=== PATIENT | male | born 1960 | race Caucasian/White ===

== ENCOUNTER 2017-04-07 11:47 | Emergency (ER) | payer MEDICAID ==
[~2017-04-07] VITALS: Ht 167.6 cm; Wt 72.6 kg
[~2017-04-07 11:47] MED LIST: LIPITOR20 MG ORAL; MIRALAX17 G2 ORAL; PROCTOCREAM-HC30 GM RC
[2017-04-07 11:58] VITALS: BP 126/70
--- NOTE | 2017-04-07 12:19 | Emergency Room Report ---
History of Present Illness General Chief Complaint: Back Pain-No Injury Present Illness HPI 56 YO male presents to the ED c/o Itching, swelling, and erythema of several lesions on the back x 1 month with intermittent burning pain rated as 8/10 in severity. Denies trauma or fall. Denies ill contacts or recent travel denies fevers, chills, joint pain. Patient denies past medical history other than hyperlipidemia and states he is otherwise healthy. Denies lesions/rashes elsewhere on the body. Denies new medications or body washes or creams. Denies swelling of the lips, tongue , throat or airway. Denies wheezing, or shortness of breath. Denies recent travel, recent illness or ill contacts. denies blisters, oral lesions, or sloughing of the skin. denies CP, palpitations, abdominal pain, neck pain/stiffness, or AMBROSE. Allergies: Coded Allergies: No Known Allergies (Unverified , 04/18/14) Patient History Past Medical History: see triage record Past Surgical History: none Pertinent Family History: none Reviewed Nursing Documentation: PMH: Agreed, PSxH: Agreed Nursing Documentation-PMH Hx Hypertension: Yes Hx Diabetes: Yes Review of Systems All Other Systems: negative except mentioned in HPI Physical Exam Vital Signs Date Time Temp Pulse Resp B/P (MAP) Pulse Ox O2 Delivery O2 Flow Rate FiO2 04/07/17 11:53 98.2 88 20 126/70 98 Room Air Sp02 EP Interpretation: reviewed, normal General Appearance: no apparent distress, alert, GCS 15, non-toxic Head: normocephalic, atraumatic Eyes: bilateral eye normal inspection, bilateral eye PERRL ENT: hearing grossly normal, normal pharynx, no angioedema, normal voice, other - no oral lesions Neck: full range of motion, no bony tend Respiratory: chest non-tender, lungs clear, normal breath sounds, no wheezing, speaking full sentences Cardiovascular #1: regular rate, rhythm Gastrointestinal: other - no lesions noted on anterior torso Rectal: deferred Musculoskeletal: back normal, gait/station normal, normal range of motion, non- tender Neurologic: alert, oriented x3, responsive, motor strength/tone normal, sensory intact, speech normal Skin: normal color, warm/dry, well hydrated, rash - scattered discrete erythematous papular lesions with localized swelling, no increased temperature to palpation, no appreciable pattern no blisters, no vesicles, no pustules, some excoriations noted, no increased temperature to palpation only on the upper back. Lymphatic: no adenopathy Medical Decision Making PA Attestation Dr. Bsasett is my supervising Physician whom patient management has been discussed with. Diagnostic Impression: Primary Impression: Rash and nonspecific skin eruption ER Course 56 YO male presents to the ED c/o Itching, swelling, and erythema of several lesions on the back x 1 month with intermittent burning pain rated as 8/10 in severity. Denies trauma or fall. Denies ill contacts or recent travel denies fevers, chills, joint pain. Patient denies past medical history other than hyperlipidemia and states he is otherwise healthy. Denies lesions/rashes elsewhere on the body. Denies new medications or body washes or creams. Denies swelling of the lips, tongue , throat or airway. Denies wheezing, or shortness of breath. Denies recent travel, recent illness or ill contacts. denies blisters, oral lesions, or sloughing of the skin. denies CP, palpitations, abdominal pain, neck pain/stiffness, or AMBROSE. Ddx considered but are not limited to cellulitis, scabies, insect bites, tic bites, spider bites, contact dermatitis, Drug reaction, allergic reaction, fungal infection, lice. Vital signs: are WNL, pt. is afebrile H&PE are most consistent with insect bites, no evidence of secondary infection ORDERS: none required at this time, the diagnosis is clinical ED INTERVENTIONS: None required at this time. DISCHARGE: At this time pt. is stable for d/c to home. Will provide printed patient care instructions, and any necessary prescriptions. Care plan and follow up instructions have been discussed with the patient prior to discharge. Last Vital Signs Date Time Temp Pulse Resp B/P (MAP) Pulse Ox O2 Delivery O2 Flow Rate FiO2 04/07/17 11:58 20 126/70 98 Room Air 04/07/17 11:53 98.2 88 Disposition: HOME, SELF-CARE Condition: Stable Scripts Hydrocortisone (Hydrocortisone Cream 2.5%) Y Cream.appl 1 APPLIC TP BID, #28.3 GM Prov: Abril Brannon 04/07/17 Diphenhydramine Hcl (BENADRYL ALLERGY) 25 Mg Tablet 25 MG PO Q6HR, #20 TAB Prov: Abril Brannon 04/07/17 Patient Instructions: Rash, Uizm-ci-Blvy Additional Instructions: Take medications as directed. Follow up with a Primary Care Provider in 3-5 days, even if your symptoms have resolved. --Please review list of primary care clinics, if you do not already have a primary care provider Return sooner to ED if new symptoms occur, or current symptoms become worse. Do not drink alcohol, drive, or operate heavy machinery while taking benadryl as this may cause drowsiness. - Please note that this Emergency Department Report was dictated using [employer] family teacher technology software, occasionally this can lead to erroneous entry secondary to interpretation by the dictation equipment. Abril Brannon Apr 07, 2017 12:19
[2017-04-07] MEDS ORDERED: HYDROCORTISONE30 G2 TP (12:21)
[2017-04-07] MEDS ORDERED: BENADRYL ALLERG25 M1 PO (12:21)
[2017-04-07 13:04] VITALS: BP 126/70
== END 2017-04-07 13:11 | disposition home or self-care (01) ==
LOC: EMR 12:00
DX: R21 Rash and other nonspecific skin eruption (principal); I10 Essential (primary) hypertension; E11.9 Type 2 diabetes mellitus without complications
CPT/HCPCS: 99283

== ENCOUNTER 2019-07-28 00:32 | Emergency (ER) | payer MEDICAID ==
[~2019-07-28] VITALS: Ht 157.5 cm; Wt 58.5 kg
[~2019-07-28 00:32] MED LIST changes: +BENADRYL ALLERG25 M1 PO; +HYDROCORTISONE30 G2 TP
--- NOTE | 2019-07-28 00:40 | NUR ---
ED Nurse Note: PT WALKED IN TO ED CO AMBROSE WITH LEFT SIDED FACE NUMBNESS X2DAYS. NO FOREARM DRIFT, NO SLURRED SPEACH. PT PRESENTS WITH LEFT SIDED FACIAL DROOP. VSS, NAD, FAMILY AT BEDSIDE, ERMD AT BEDSIDE. WILL CONTINUE TO MONITOR PATIENT.
[2019-07-28 00:45] VITALS: BP 135/66
--- NOTE | 2019-07-28 03:10 | NUR ---
ED Nurse Note: PER ERMD ORDER, ADMINISTERED PREDNISONE 60 MG PO VIA OVERRIDE D/T DOWNTIME
--- NOTE | 2019-07-28 03:30 | NUR ---
ED Nurse Note: PT WENT FOR CT VIA WHEELCHAIR ACCOMPANIED BY CALL CENTER NURSE
--- NOTE | 2019-07-28 04:05 | NUR ---
ED Nurse Note: PT BACK FROM CT
[2019-07-28 05:30] VITALS: BP 132/78
--- NOTE | 2019-07-28 05:30 | NUR ---
ER DISCHARGE NOTE: Patient is cleared to be discharged per ERMD, pt is aox4, on room air, with stable vital signs. pt was given dc and prescription instructions, pt was able to verbalize understanding, pt id band removed without complications. pt is able to ambulate with steady gait. pt took all belongings.
--- NOTE | 2019-07-28 07:16 | Emergency Room Report ---
History of Present Illness General Chief Complaint: Stroke Symptoms Source: Patient Present Illness HPI Is a 58-year-old male with a history of diabetes and high blood pressure. He presents with complaint of left facial droop. Onset was yesterday. He had some numbness to his face yesterday. Saw his primary care doctor who gave him Motrin. Symptoms worsened today where he has left facial droop. When he was eating her his daughter noticed that she was dripping out of his mouth. He has no slurred speech. He cannot close his eye completely. No focal deficit in the body. No trauma. Never had this problem before. No fever chills but does have a headache on the left side. Pain 5 out of 10. Allergies: Coded Allergies: No Known Allergies (Unverified , 04/18/14) Patient History Past Medical History: see triage record, old chart reviewed, DM, HTN Past Surgical History: none Pertinent Family History: none Social History: Denies: smoking Immunizations: other Reviewed Nursing Documentation: PMH: Agreed; PSxH: Agreed Nursing Documentation-PMH Past Medical History: No History, Except For Hx Hypertension: Yes Hx Diabetes: Yes Review of Systems Eye: Denies: eye pain, blurred vision ENT: Denies: ear pain, nose congestion, throat swelling Respiratory: Denies: cough, shortness of breath Cardiovascular: Denies: chest pain, palpitations Gastrointestinal: Denies: abdominal pain, diarrhea, nausea, vomiting Musculoskeletal: Denies: back pain, joint pain Skin: Denies: rash Neurological: Reports: headache, focal weakness; Denies: numbness Endocrine: Denies: increased thirst, increased urine Hematologic/Lymphatic: Denies: easy bruising All Other Systems: negative except mentioned in HPI Physical Exam Vital Signs Date Time Temp Pulse Resp B/P (MAP) Pulse Ox O2 Delivery O2 Flow Rate FiO2 07/28/19 00:35 98.1 92 18 132/70 (90) 96 Room Air Vitals normal Sp02 EP Interpretation: reviewed, normal General Appearance: well appearing, no apparent distress, alert Head: normocephalic, atraumatic Eyes: bilateral eye PERRL, bilateral eye EOMI ENT: hearing grossly normal, normal pharynx Neck: full range of motion, supple, no meningismus Respiratory: chest non-tender, lungs clear, normal breath sounds Cardiovascular #1: regular rate, rhythm, no murmur Gastrointestinal: normal bowel sounds, non tender, no mass, no organomegaly, no bruit, non-distended Musculoskeletal: back normal, normal range of motion, gait/station normal Neurologic: facial droop - This also involve the forehead on the left side Psychiatric: mood/affect normal Medical Decision Making Diagnostic Impression: Primary Impression: Coronado's palsy ER Course Patient presents with a left facial droop that consistent with a Coronado's palsy. No evidence of TIA or CVA. No trauma. I did not see any lesion in the ear or the nose. CT/MRI/US Diagnostic Results CT/MRI/US Diagnostic Results : Imaging Test Ordered: CT head Impression Read by radiologist. Negative. Last Vital Signs Date Time Temp Pulse Resp B/P (MAP) Pulse Ox O2 Delivery O2 Flow Rate FiO2 07/28/19 05:30 98.2 71 16 132/78 98 Room Air Status: improved Disposition: HOME, SELF-CARE Condition: Stable Additional Instructions: Follow-up with your doctor in 7 days. Return if worse. Madan Sanders MD Jul 28, 2019 07:16
--- NOTE | 2019-07-28 15:05 | Diagnostic Imaging Report ---
EXAM: CT Head Without Intravenous Contrast CLINICAL HISTORY: H/A TECHNIQUE: Axial computed tomography images of the head/brain without intravenous contrast. CTDI is 53.4 mGy and DLP is 1259.2 mGy-cm. One or more of the following dose reduction techniques were used: automated exposure control, adjustment of the mA and/or kV according to patient size, use of iterative reconstruction technique. COMPARISON: None FINDINGS: Brain: Unremarkable. No hemorrhage. No significant white matter disease. No edema. Ventricles: Unremarkable. No ventriculomegaly. Bones/joints: Unremarkable. No acute fracture. Soft tissues: Unremarkable. Sinuses: Left maxillary sinus mucosal thickening. Otherwise unremarkable as visualized. No acute sinusitis. Mastoid air cells: Unremarkable as visualized. No mastoid effusion. IMPRESSION: Mild left mucosal thickening of the maxillary sinus. Otherwise unremarkable head/brain CT.
== END 2019-07-28 06:00 | disposition home or self-care (01) ==
LOC: EMR 05:56
DX: G51.0 Bell's palsy (principal); I10 Essential (primary) hypertension; E11.9 Type 2 diabetes mellitus without complications
CPT/HCPCS: 70450; J7512; Z7502; 99284